=== PATIENT | female | born 1990 | race Caucasian/White ===

== ENCOUNTER → 2017-01-29 | Outpatient (CLI) | payer MEDICAID, OTHER ==
[~2017-01-29] MED LIST: ADVI200T PO; CIPR500T89 PO; FLAG500T PO; NORCOTAB PO; OXYC-208 PO; PERCOCET PO; TYLE325T5 PO
[2017-01-29 12:05] LABS: BASO % 0.7 % (0.0-1.0); EOS # 0.2 K/mm3 (0.0-0.50); EOS % 3.4 % (0.0-3.0); LARGE UNSTAINED CELL # 0.2 K/mm3 (0.0-0.4); LARGE UNSTAINED CELL % 2.6 % (0.0-4.0); LYMPH # 2.3 K/mm3 (1.5-6.5); LYMPH % 33.5 % (24.0-44.0); MEAN CORPUSCULAR HGB CONC 33.8 g/dl (32.0-36.5); MEAN CORPUSCULAR VOLUME 94.6 fl (80.0-96.0); MONO # 0.4 K/mm3 (0.0-0.8); MONO % 7.1 % (0.0-5.0); NEUTROPHILS # 3.3 K/mm3 (1.8-7.7); NEUTROPHILS % 52.7 % (36.0-66.0); PLATELET COUNT, AUTOMATED 217 k/mm3 (150-450); RED CELL DISTRIBUTION WIDTH 12.6 % (11.5-14.5); WHITE BLOOD COUNT 6.3 K/mm3 (4.0-10.0)
[2017-01-29 12:16] LABS: CONTROL LINE HCG INT CTR LINE PRESENT
[2017-01-29 12:34] LABS: ALBUMIN 3.6 GM/DL (3.2-5.2); ALBUMIN/GLOBULIN RATIO 1.06 (1.00-1.93); ALKALINE PHOSPHATASE 68 U/L (45-117); ALT/SGPT 12 U/L (12-78); ANION GAP 6 MEQ/L (8-16); AST/SGOT 17 U/L (15-37); BILIRUBIN,TOTAL 0.4 MG/DL (0.2-1.0); BLOOD UREA NITROGEN 12 MG/DL (7-18); CALCIUM LEVEL 8.7 MG/DL (8.5-10.1); CARBON DIOXIDE LEVEL 28 MEQ/L (21-32); CHLORIDE LEVEL 106 MEQ/L (98-107); CHOLESTEROL LEVEL 133 MG/DL (<200); GLOMERULAR FILTRATION RATE > 60.0 (>60); GLUCOSE, FASTING 91 MG/DL (70-105); POTASSIUM SERUM 3.9 MEQ/L (3.5-5.1); SODIUM LEVEL 140 MEQ/L (136-145); TRIGLYCERIDES LEVEL 101 MG/DL (<150)
== END ==
LOC: M LAB 11:31
PROVIDERS: ATTEND Family Medicine Addiction Medicine
DX: Z00.01 Encounter for general adult medical examination with abnormal findings (principal)

== ENCOUNTER → 2017-02-22 | Outpatient (CLI) | payer OTHER ==
[2017-02-22 13:57] LABS: FREE T4 1.17 NG/DL (0.76-1.46)
== END ==
LOC: M LAB 12:21
PROVIDERS: ATTEND Family Medicine Addiction Medicine
DX: E05.80 Other thyrotoxicosis without thyrotoxic crisis or storm (principal)

== ENCOUNTER → 2017-05-20 | Outpatient (CLI) | payer OTHER ==
[~2017-05-20] MED LIST changes: +NEUR100C PO
--- NOTE | 2017-05-21 09:13 | REP ---
Abdominal right upper quadrant ultrasound: Comparison is 07/26/2013. There has been interim cholecystectomy. There is no intrahepatic biliary duct dilatation. The common duct is mildly dilated measuring 6.6 mm in diameter, likely compensatory secondary to the cholecystectomy. The hepatic parenchyma is mildly echogenic compatible with hepato steatosis. There are no hepatic masses. The visualized portion of the pancreatic head is unremarkable. The pancreatic tail and body are obscured by bowel. There is no right renal calculus, hydronephrosis, mass or cyst. Right kidney is normal size measuring 12.5 cm craniocaudad length. There is no free fluid in the right upper quadrant. Impression: Mild hepato steatosis. Mild common duct dilatation, likely compensatory secondary to the cholecystectomy. Signed by Damon Fan MD 05/20/2017 07:53 A
== END ==
LOC: M RAD 07:01
PROVIDERS: ATTEND Internal Medicine Gastroenterology
DX: R10.13 Epigastric pain (principal)

== ENCOUNTER 2017-07-02 12:17 | Outpatient (CLI) | payer OTHER ==
[~2017-07-02 12:17] MED LIST changes: -NEUR100C PO
[2017-07-02] MEDS ORDERED: NEUR100C PO (12:37)
[2017-07-02] MEDS ORDERED: NS 1,000 ML IV ONE (12:45)
[2017-07-02] MEDS ORDERED: fentaNYL 100 MCG/2 ML INJECTION (J3010) As Ordered ONE (13:10)
[2017-07-02] MEDS ORDERED: PROPOFOL 200 MG/20 ML VIAL As Ordered ONE ×2 (13:12→13:24)
[2017-07-02] MEDS ORDERED: LIDOCAINE 2% INJ 100 MG/5 ML SDV (FOR ANES.) As Ordered ONE (13:12)
--- NOTE | 2017-07-02 13:35 | ROOR ---
Patient Name: Ana Maria Olivas Procedure Date: 07/02/2017 1:13 PM Date of : 1990 Age: 26 Room: [facility] Gender: Female Note Status: Finalized Procedure: Upper GI endoscopy Indications: Epigastric abdominal pain, Persistent vomiting Providers: Kevan Marshall MD Referring MD: Justin MANCERA MD Requesting Provider: Medicines: Monitored Anesthesia Care Complications: No immediate complications. Procedure: Pre-Anesthesia Assessment: - Prior to the procedure, a History and Physical was performed, and patient medications and allergies were reviewed. The patient is competent. The risks and benefits of the procedure and the sedation options and risks were discussed with the patient. All questions were answered and informed consent was obtained. Patient identification and proposed procedure were verified by the physician, the nurse and the pharmaceutical specialty representative in the procedure room. Mental Status Examination: alert and oriented. Airway Examination: normal oropharyngeal airway and neck mobility. Respiratory Examination: clear to auscultation. CV Examination: normal. Prophylactic Antibiotics: The patient does not require prophylactic antibiotics. Prior Anticoagulants: The patient has taken no previous anticoagulant or antiplatelet agents. ASA Grade Assessment: I - A normal, healthy patient. After reviewing the risks and benefits, the patient was deemed in satisfactory condition to undergo the procedure. The anesthesia plan was to use monitored anesthesia care (MAC). Immediately prior to administration of medications, the patient was re-assessed for adequacy to receive sedatives. The heart rate, respiratory rate, oxygen saturations, blood pressure, adequacy of pulmonary ventilation, and response to care were monitored throughout the procedure. The physical status of the patient was re-assessed after the procedure. The Endoscope was introduced through the mouth, and advanced to the second part of duodenum. The upper GI endoscopy was accomplished without difficulty. The patient tolerated the procedure well. Findings: The examined esophagus was normal. Biopsies were obtained from the proximal and distal esophagus with cold forceps for histology of suspected eosinophilic esophagitis. Verification of patient identification for the specimen was done by the physician and nurse using the patient's name, date and medical record number. Estimated blood loss was minimal. Diffuse mild inflammation characterized by congestion (edema) and erythema was found in the gastric body and in the gastric antrum. Biopsies were taken with a cold forceps for histology. Biopsies were taken with a cold forceps for Helicobacter pylori testing. The duodenal bulb and second portion of the duodenum were normal. Biopsies for histology were taken with a cold forceps for evaluation of celiac disease. Impression: - Normal esophagus. Biopsied. - Gastritis. Biopsied. - Normal duodenal bulb and second portion of the duodenum. Biopsied. Recommendation: - Patient has a contact number available for emergencies. The signs and symptoms of potential delayed complications were discussed with the patient. Return to normal activities tomorrow. Written discharge instructions were provided to the patient. - Resume previous diet. - Continue present medications. - Await pathology results. - Return to GI clinic as previously scheduled 07/11/2017 at 1:30 PM. - Return to primary care physician. Kevan Marshall MD Kevan Marshall MD 07/02/2017 1:35:13 PM This report has been signed electronically. Number of Addenda: 0 Note Initiated On: 07/02/2017 1:13 PM Estimated Blood Loss: Estimated blood loss was minimal.
[2017-07-02 13:50] VITALS: BP 117/70
== END 2017-07-02 14:05 | disposition home or self-care (01) ==
LOC: M OPP 12:17
PROVIDERS: ATTEND Internal Medicine Gastroenterology
DX: R10.13 Epigastric pain (principal); R11.10 Vomiting, unspecified; K29.70 Gastritis, unspecified, without bleeding; K21.9 Gastro-esophageal reflux disease without esophagitis; Z87.891 Personal history of nicotine dependence
CPT/HCPCS: 43239; 88305; J3010

== ENCOUNTER → 2018-01-01 | Outpatient (REF) | payer OTHER, SELFPAY | LOC: M LAB REF 18:16 | DX: Z12.4 Encounter for screening for malignant neoplasm of cervix (principal) | CPT/HCPCS: G0123 ==

== ENCOUNTER → 2018-01-06 | Outpatient (CLI) | payer SELFPAY, OTHER ==
[2018-01-06 12:20] LABS: ESTRADIOL 45.5 PG/ML
[2018-01-06 12:20] LABS: FOLLICLE STIMULATING HORMONE 6.5 mIU/mL; LUTEINIZING HORMONE 6.5 mIU/mL; PROLACTIN 17.1 NG/ML
== END ==
LOC: M LAB 11:04
DX: N97.9 Female infertility, unspecified (principal)
CPT/HCPCS: 83001

== ENCOUNTER → 2018-03-31 | Outpatient (REF) | payer OTHER | LOC: M LAB REF 13:20 | DX: R87.613 High grade squamous intraepithelial lesion on cytologic smear of cervix (HGSIL) (principal) ==

== ENCOUNTER 2018-08-25 17:30 | Emergency (ER) | payer OTHER | END 2018-08-25 19:29 | disposition home or self-care (01) | LOC: M ED 17:30 | DX: S60.022A Contusion of left index finger without damage to nail, initial encounter (principal); W19.XXXA Unspecified fall, initial encounter; Y92.099 Unspecified place in other non-institutional residence as the place of occurrence of the external cause; Y93.9 Activity, unspecified; Y99.9 Unspecified external cause status | CPT/HCPCS: 73140 ==

== ENCOUNTER 2020-08-18 18:34 | Emergency (ER) | payer MEDICAID, OTHER ==
[~2020-08-18] VITALS: Ht 170.2 cm; Wt 117.3 kg
[~2020-08-18 18:34] MED LIST changes: +NEUR100C PO; +OXYC1TAB23 PO; -PERCOCET PO
[2020-08-18 20:59] VITALS: BP 133/87
== END 2020-08-18 21:00 | disposition home or self-care (01) ==
LOC: M ED 18:34
DX: Z32.01 Encounter for pregnancy test, result positive (principal)

== ENCOUNTER → 2020-08-22 | Outpatient (CLI) | payer MEDICAID | LOC: M LAB 15:02 | PROVIDERS: ATTEND Physician Assistant Medical | DX: Z32.01 Encounter for pregnancy test, result positive (principal) ==

== ENCOUNTER 2020-11-28 14:31 | Day surgery (SDC) | payer MEDICAID, OTHER ==
[~2020-11-28] VITALS: Ht 172.7 cm; Wt 111.4 kg
[2020-11-28] MEDS ORDERED: ONDANSETRON 4MG/2ML VIAL IV ONE (15:00)
[2020-11-28] MEDS ORDERED: NS 1,000 ML IV ONE ×2 (15:00→19:15)
--- OUTSIDE RECORDS SUMMARY | 2020-11-28 15:28 | CCD ---
Author Author [facility] Organization [facility] Address Unknown Phone Unavailable Support Name Relationship Address Phone NO, CONTACT Next Of Kin Unknown Unavailable JEANNE'S Next Of Kin [address] [id number] Dago W[place] [address] CE[place] [address] ARBRIANNA JENNIFER Next Of Kin Unknown LARS Next Of Kin [address] [place] [id number] [employer] Next Of Kin [address] [place] [address] [place] [address] [phone] UE Next Of Kin Unknown Unavailable DEWEY COOK Next Of Kin [phone] [address] Dewey Wilks ECON Unknown [phone] Re-disclosure Warning The records that you are about to access may contain information from federally-assisted alcohol or drug abuse programs. If such information is present, then the following federally mandated warning applies: This information has been disclosed to you from records protected by federal confidentiality rules (42 CFR part 2). The federal rules prohibit you from making any further disclosure of this information unless further disclosure is expressly permitted by the written consent of the person to whom it pertains or as otherwise permitted by 42 CFR part 2. A general authorization for the release of medical or other information is NOT sufficient for this purpose. The Federal rules restrict any use of the information to criminally investigate or prosecute any alcohol or drug abuse patient.The records that you are about to access may contain highly sensitive health information, the redisclosure of which is protected by Article 27-F of the [facility] Public Health law. If you continue you may have access to information: Regarding HIV / AIDS; Provided by facilities licensed or operated by the [facility] Office of Mental Health; or Provided by the [facility] Office for People With Developmental Disabilities. If such information is present, then the following [facility] mandated warning applies: This information has been disclosed to you from confidential records which are protected by state law. State law prohibits you from making any further disclosure of this information without the specific written consent of the person to whom it pertains, or as otherwise permitted by law. Any unauthorized further disclosure in violation of state law may result in a fine or mcc sentence or both. A general authorization for the release of medical or other information is NOT sufficient authorization for further disc losure. Family History Family Member Name Family Member Gender Family Member Status Date o f Status Description Data Source(s) Unknown Unknown Problem MEDENT ([facility]) Unknown Male Problem MED[facility] ([facility]) Insurance Providers Payer name Policy type / Coverage type Policy ID Covered constitution party ID Covered constitution party's relationship to meza Policy Meza Plan Information EMEDNY [id number] SP [id number] [facility] [id number] SP [id number] [facility] COMMUNITY PLAN [facility] [id number] SP [id number] [facility] I [id number] Self [id number] Managed Care - Community Plan [facility] P [id number] S [id number] Medicaid S [id number] S [id number] [facility] COMM[facility] [id number] SP [id number] [facility] Comm Plan Medicaid F [id number] SELF [id number] [facility] Comm Plan Medicaid F [id number] SELF [id number] [facility] Essential Comm Plan Medicaid F [id number] SELF [id number] [facility] Health Maintenance Organization (HMO) [id number] Self [id number] [place] Medig[place] Part B [id number] Self [id number] [facility] Community Plan Medigap Part B [id number] Self [id number] [facility] Community Plan Commercial [id number] Self [id number] [place] Med[place] Part [place] [id number] Self [id number] [facility] O [id number] S [id number] [facility](MCAID) O [id number] S [id number] SELF PAY ONLY [id number] SP [id number] SELF PAY ONLY UNAVAILABLE SP UNAV AILABLE SELF PAY ONLY [id number] SP [id number] SELF PAY ONLY [id number] SP [id number] [facility] Health Maintenance Organization (HMO) [id number] Self [id number] [place] [id number] Self [id number] [facility] Community Plan Commercial [id number] Self [id number] [facility] Health Maintenance Organization (HMO) [id number] Self [id number] [place] [id number] Self [id number] [place] [id number] Self [id number] Managed Care - Community Plan [facility] P [id number] S [id number] [place] Med[place] Part [place] [id number] Self [id number] [facility] Health Maintenance Organization (O) [id number] Self [id number] [place] [id number] Self [id number] [place] Medig[place] [id number] Self [id number] [facility](MCAID) O [id number] S [id number] UNHC COMMUNITY PLAN MCDHMO [id number] SP [id number] UNHC COMMUNITY PLAN MCDHMO [id number] SP [id number] MEDICAID [id number] SP [id number] UNHC COMMUNITY PLAN MCDHMO [id number] SP [id number] UNHC COMMUNITY PLAN MCDHMO [id number] SP [id number] UNHC AMERICHOICE XIX -HMO [id number] 18 [id number] MEDICAID [id number] SP [id number] MEDICAID P [id number] S [id number] SELF PAY UNAVAILABLE SP UNAVAILA BLE P UNAVAILABLE UNAVAILA BLE [id number]
[2020-11-28 15:32] LABS: BASO % 0.2 % (0.0-1.0); HEMATOCRIT 41.3 % (36.0-47.0); HEMOGLOBIN 13.8 g/dl (12.0-15.5); LYMPH # 0.7 10^3/uL (1.5-5.0); LYMPH % 5.6 % (24.0-44.0); MEAN CORPUSCULAR HEMOGLOBIN 32.3 pg (27.0-33.0); MEAN CORPUSCULAR HGB CONC 33.4 g/dl (32.0-36.5); MEAN CORPUSCULAR VOLUME 96.7 fl (80.0-96.0); MONO # 0.3 10^3/uL (0.0-0.8); MONO % 2.6 % (0.0-8.0); NEUTROPHILS # 11.1 10^3/uL (1.5-8.5); NEUTROPHILS % 91.2 % (36.0-66.0); PLATELET COUNT, AUTOMATED 265 10^3/uL (150-450); RED BLOOD COUNT 4.27 10^6/uL (4.00-5.40); WHITE BLOOD COUNT 12.2 10^3/uL (4.0-10.0)
[2020-11-28] MEDS ORDERED: MORPHINE 2 MG/ML 1ML VIAL (J2270) IV ONE ×2 (15:45→20:15)
[2020-11-28] MEDS ORDERED: MORPHINE 4 MG/ML 1ML VIAL/SYRINGE (J2270) IV ONE (17:30)
--- NOTE | 2020-11-28 18:04 | REPVR ---
PROCEDURE INFORMATION: Exam: US First Trimester, Transabdominal and US , Transvaginal Exam date and time: 11/28/2020 4:41 PM Age: 30 years old Clinical indication: Pain; Other: RT adnexa; Gestational age or lmp: 5wks 2d; ; Additional info: Bleeding TECHNIQUE: Imaging protocol: Real-time transabdominal obstetrical ultrasound of the maternal pelvis and a first trimester , less than 14 weeks 0 days, with image documentation. Transvaginal imaging was used for better evaluation of the fetus, adnexa, and/or cervix. Total images: 64 COMPARISON: No relevant prior studies available. FINDINGS: Gestation: No intrauterine or extrauterine gestational sac is identified. No uterine mass is identified. MATERNAL: Uterus: The uterus is anteverted and 8.2 x 3.0 x 3.6 cm on the transvaginal study, and 7.8 x 3.7 x 4.1 cm on the transabdominal study. The endometrium is 1.1 cm in thickness. Cervix: Unremarkable. Closed. Right adnexa: The right ovary is 2.6 x 2.5 x 0.9 cm, not including an anechoic simple cyst adjacent to the right ovary, which is 2.5 x 2.1 x 1.5 cm. In the right adnexa, there is a complex echogenic area is 3.6 x 3.7 x 3.0 cm. It appears separate from the right ovary. On color Doppler, it is not vascular (image 54). It is hyperechoic centrally. It is nonspecific. Left adnexa: Small hemorrhagic left ovarian cyst. The left ovary is 3.2 x 2.7 x 1.7 cm. Within the left ovary, an involuting corpus luteum or hemorrhagic cyst is 1.6 x 1.6 x 0.9 cm. Intraperitoneal space: Mild free fluid. Urinary bladder: Urinary bladder is normal without wall thickening, mass or stone. IMPRESSION: 1. No intrauterine or extrauterine gestational sac is identified. Differential diagnosis includes early pce-euq-iwalcru intrauterine , recent miscarriage or occult ectopic . 2. In the right adnexa, a complex echogenic area is 3.6 x 3.7 x 3.0 cm. It is separate from the right ovary. On color Doppler, it is not vascular (image 54). It is nonspecific. An ectopic cannot be excluded. Close clinical follow-up is recommended. 3. Mild free fluid. CONFERENCE CALL: The findings were verbally communicated via telephone conference with MILITARY PAY CLERK Kee Naidu at 6:01 PM EST on 11/28/2020. The findings were acknowledged and understood. Electronically signed by: Narendra Duran On 11/28/2020 18:03:42 PM
[2020-11-28] MEDS ORDERED: SUCCINYLCHOLINE 100 MG/5 ML SYRINGE (J0330) As Ordered ONE (19:33)
[2020-11-28] MEDS ORDERED: propofoL 200 MG/20 ML VIAL As Ordered ONE (19:33)
[2020-11-28] MEDS ORDERED: LIDOCAINE 2% 100MG/5ML SDV (FOR ANES.) As Ordered ONE (19:33)
[2020-11-28] MEDS ORDERED: ROCURONIUM BROMIDE 50 MG/5 ML VIAL As Ordered ONE ×2 (19:33→22:46)
[2020-11-28] MEDS ORDERED: fentaNYL 100 MCG/2 ML INJECTION (J3010) As Ordered ONE ×4 (19:34→23:29)
[2020-11-28] MEDS ORDERED: MIDAZOLAM INJ 2MG/2ML VIAL (J2250 PER 1MG) As Ordered ONE (19:34)
[2020-11-28] MEDS ORDERED: OXYC1TAB23 PO (19:47)
[2020-11-28] MEDS ORDERED: IBUP1TAB7 PO (19:47)
[2020-11-28] MEDS: LR 1,000 ML IV SCH (20:11)
[2020-11-28 20:39] LABS: RSV AMPLIFICATION NEGATIVE (NEGATIVE)
[2020-11-28] MEDS ORDERED: BUPIVACAINE HCL 0.25% 30ML VIAL As Ordered ONE (20:45)
--- OUTSIDE RECORDS SUMMARY | 2020-11-28 21:31 | CCD ---
Author Author [facility] Organization [facility] Address Unknown Phone Unavailable Support Name Relationship Address Phone NO, CONTACT Next Of Kin Unknown Unavailable JEANNE'S Next Of Kin [address] [id number] Dago WILKS [place] [address] CELL JENNIFER [place] [address] ARBRIANNA JENNIFER Next Of Kin Unknown LARS Next Of Kin [address] [facility] [place] [id number] [employer] Next Of Kin [address] [place] [address] [place] [address] [phone] UE Next Of Kin Unknown Unavailable DEWEY COOK Next Of Kin [phone] [address] Dewey Wilks ECON Unknown [phone] Re-disclosure Warning The records that you are [...] is protected by Article 27-F of the [facility] Public Health law. If you continue you may have access to information: Regarding HIV / AIDS; Provided by facilities licensed or operated by the [facility] Office of Mental Health; or Provided by the [facility] Office for People With Developmental Disabilities. If such information is present, then the following [facility] mandated warning applies: This information has been [...] law may result in a fine or custodial sentence or both. A general authorization for the release of medical or other information is NOT sufficient authorization for further disc losure. Family History Family Member Name Family Member Gender Family Member Status Date o f Status Description Data Source(s) Unknown Unknown Problem MED[facility] ([facility]) Unknown Male Problem [facility] ([facility]) Insurance Providers Payer name Policy type / Coverage type Policy ID Covered green party ID Covered green party's relationship to meza Policy Meza Plan Information GONZALO [id number] SP [id number] EMEDNY [id number] SP [id number] [facility] [id number] SP [id number] 500 [facility] COMMUNITY PLAN [facility] [id number] SP [id number] [facility] I [id number] Self [id number] Managed Care - Community Plan [facility] P [id number] S [id number] Medicaid S [id number] S [id number] [facility] COMMUNITY PLAN [facility] [id number] SP [id number] [facility] Comm Plan Medicaid F [id number] SELF [id number] [facility] Comm Plan Medicaid F [id number] SELF [id number] [facility] Essential Comm Plan Medicaid F [id number] SELF [id number] [facility] Health Maintenance Organization (HMO) [id number] Self [id number] [place] Medig[place] Part B [id number] Self [id number] [facility] Community Plan Medigap Part B [id number] Self [id number] [facility] Community Plan Commercial [id number] Self [id number] [place] Med[place] Part B [id number] Self [id number] [facility](MCAID) O [id number] S [id number] [facility]) O [id number] S [id number] SELF PAY ONLY [id number] SP [id number] SELF PAY ONLY UNAVAILABLE SP UNAV AILABLE SELF PAY ONLY [id number] SP [id number] SELF PAY ONLY [id number] SP [id number] [facility] Health Maintenance Organization (HMO) [id number] Self [id number] [place] Med[place] Part [place] [id number] Self [id number] [facility] Community Plan Commercial [id number] Self [id number] [facility] Health Maintenance Organization (HMO) [id number] Self [id number] [place] [id number] Self [id number] [place] [id number] Self [id number] Managed Care - Community Plan [facility] P [id number] S [id number] [place] Med[place] Part B [id number] Self [id number] [facility] Health Maintenance Organization (O) [id number] Self [id number] [place] [id number] Self [id number] [place] [id number] Self [id number] [facility](MCAID) O [id number] S [id number] UNHC COMMUNITY PLAN MCDO [id number] SP [id number] UNHC COMMUNITY PLAN MCDO [id number] SP [id number] MEDICAID [id number] SP [id number] UNHC COMMUNITY PLAN MCDHMO [id number] SP [id number] UNHC COMMUNITY PLAN MCDHMO [id number] SP [id number] UNHC AMERICHOICE XIX -HMO [id number] 18 [id number] MEDICAID [id number] SP [id number] MEDICAID P [id number] S [id number] SELF PAY UNAVAILABLE SP UNAVAILA BLE P UNAVAILABLE UNAVAILA BLE [id number]
[2020-11-28] MEDS ORDERED: dexameTHASONE 4 MG/ML 1ML VIAL (J1100 PER 1MG) As Ordered ONE (21:45)
[2020-11-28] MEDS ORDERED: SUGAMMADEX SODIUM 500 MG/5 ML VIAL (BRIDION) As Ordered ONE (21:45)
[2020-11-28] MEDS ORDERED: ONDANSETRON 4MG/2ML VIAL As Ordered ONE (21:45)
[2020-11-28] MEDS ORDERED: ACETAMINOPHEN 1000MG 100ML IV BTL (OFIRMEV) (J0131 PER 10MG) As Ordered ONE (21:45)
[2020-11-28] MEDS ORDERED: METOCLOPRAMIDE INJ 10MG/2ML VIAL (J2765 PER 1) IV PRN (23:15)
[2020-11-28] MEDS ORDERED: ONDANSETRON 4MG/2ML VIAL IV PRN ×2 (23:15→23:30)
[2020-11-28] MEDS ORDERED: LR 1,000 ML IV SCH (23:15)
[2020-11-28] MEDS: PERCOCET 5MG/325MG TAB PO PRN ×2 (23:29→23:57)
[2020-11-28] MEDS ORDERED: PERCOCET 5MG/325MG TAB As Ordered ONE (23:29)
[2020-11-28] MEDS: fentaNYL 100 MCG/2 ML INJECTION (J3010) IV PRN ×4 (23:29→23:51)
[2020-11-28] MEDS ORDERED: PERCOCET 5MG/325MG TAB PO PRN (23:30)
[2020-11-28] MEDS ORDERED: IBUPROFEN 800 MG TAB PO PRN (23:30)
[2020-11-29] VITALS (7 sets, daily range): BP systolic 130–159; BP diastolic 78–89
[2020-11-29] MEDS ORDERED: diphenhydrAMINE 50MG/ML VIAL (J1200) IV ONE
[2020-11-29] MEDS: LR 1,000 ML IV SCH (03:48)
[2020-11-29] MEDS: PERCOCET 5MG/325MG TAB PO PRN ×2 (04:06→08:31)
--- NOTE | 2020-11-29 09:26 | RO ---
OPERATIVE NOTE DATE OF OPERATION: 11/28/2020 PREOPERATIVE DIAGNOSIS: Suspicion for ruptured right ectopic . POSTOPERATIVE DIAGNOSIS: Confirmed ruptured right ectopic , right ovarian simple cyst. PROCEDURE: laparoscopic right salpingectomy, right ovarian cystectomy SURGEON: Brianne Miller MD HAND THERAPIST: Amanda Ruiz DO CLINICAL SERVICE: Gynecology ANESTHESIA: GETA INDICATION FOR OPERATION: Ana Maria is a 30-year-old G3 now P0-0-3-0 who presented to the ER with intense abdominal pain and vaginal bleeding in the context of having a positive test. In the ER she was noted to have a quant of [id number] but on ultrasound unfortunately there was no intrauterine noted but there was a complex right adnexal mass with free fluid which caused suspicion for a rupturing ectopic . MATERIAL FORWARDED TO THE LAB: 1. Right ovarian cyst. 2. Right fallopian tube with ectopic . DESCRIPTION OF FINDINGS: Laparoscopic findings included a normal-appearing liver edge. There was blood filling the pelvis noted on entry into the abdomen. When the blood was suctioned, the uterus was normal in appearance. The left fallopian tube and left ovary were normal in appearance. The right ovary had a simple-appearing cyst and the right fallopian tube had a large mass present within it with evidence of rupture and adherent clot. INFECTION CLASSIFICATION: 2. ESTIMATED BLOOD LOSS: 100 mL of blood noted on entry into the abdomen; 5 mL of surgical blood loss. IV FLUIDS: 1400 mL lactated Ringer's. URINE OUTPUT: 600 mL of clear yellow urine. OPERATION PERFORMED: Laparoscopic right salpingectomy and right ovarian cystectomy. DESCRIPTION OF PROCEDURE: After obtaining informed consent, the patient was taken to the operating room. General endotracheal anesthesia was established. She was placed in a low lithotomy position. She was prepped and draped in usual sterile fashion. She was placed in Trendelenburg position. Jean catheter was placed and a sponge stick was placed in the vagina. The patient was taken out of Trendelenburg position. A 5-mm incision was made in the infraumbilical fold beneath the subcutaneous tissue after anesthetizing with 0.25% Marcaine. Rosario clamp was used to spread the subcutaneous tissue. Lower abdominal wall was grabbed and lifted up with the aid of towel clamps. Optiview trocar was placed at a 90-degree angle and the laparoscope was advanced through the port. Intraabdominal placement was confirmed with no injury noted below the point of entry. Continuous flow carbon dioxide began to establish a pneumoperitoneum at 15 mmHg pressure. At that point, we did an abdominal survey. The liver itself was normal in appearance and there was no blood up by the liver but there was pooling of blood in the pelvis. We placed two more trocars in the right and left lower quadrants of the abdomen. On the right side, a 5-mm incision was made through which a 5-mm trocar was placed under direct visualization after anesthetizing with 0.25% Marcaine and on the left an 11-mm incision was made through which an 11-mm trocar was placed under direct visualization after anesthetizing with 0.25% Marcaine. At that point, we were able to suction and irrigate the pelvis to visualize the abnormality which was the large right ectopic present within the right fallopian tube. There was also a right ovarian cyst. We used the LigaSure to excise the entirety of the right fallopian tube in two sections; the first containing the ectopic and the second was the remaining portion of the fallopian tube more proximal to the uterus. These were set aside in the anterior cul-de-sac while we addressed the right ovarian cyst that was present. We used the LigaSure to excise the right ovarian cyst. We observed the areas and noted complete hemostasis along the pedicle line, the right adnexa as well as the right ovary itself. At that point, we introduced an Endo Catch bag through the 11-mm port into the abdomen, opened it up and placed the portions of the fallopian tube and the ectopic , and the large clot within the Endo Catch bag and pulled that up to the level of the fascia. The right ovarian portion of the cyst that was removed was removed straight up through the 5-mm port and passed off as specimen. We were able to remove the Endo Catch bag up through the abdomen only after using a grasper to remove some sections of the specimen prior to the Endo Catch being able to come up through the fascial layer, and that was all handed off as specimen. At that point, I used a Terrance-Armando to close the fascia of the 11-mm port and there was a good seal when the suture was tied. We did another survey, again noted complete hemostasis within the pelvis and we irrigated, removed all the remaining clots that had been present previously. At that point, we removed all instruments from the abdomen and removed the ports under direct visualization observing them to be hemostatic. The pneumoperitoneum was released prior to removal of the umbilical port. The incisions were reapproximated with 4-0 Monocryl suture and Dermabond overlying. The sponge stick was removed from the vagina. Jean catheter was removed. All counts were correct times 2. The patient tolerated the procedure well and was awakened from general anesthesia and taken to the recovery room in stable condition. CATHERINE
== END 2020-11-29 10:57 | disposition home or self-care (01) ==
LOC: EDBD 14:31 → M ED 14:31 → M SDC 14:32 → M PED 11-29 00:16 → M SDC 11-29 10:57
PROVIDERS: ATTEND Obstetrics & Gynecology
DX: O00.90 Unspecified ectopic pregnancy without intrauterine pregnancy (principal); N83.201 Unspecified ovarian cyst, right side; F17.218 Nicotine dependence, cigarettes, with other nicotine-induced disorders
CPT/HCPCS: 36415; 58662; 59150; 76801; 76817; 84702; 85025; 86850; 86900; 86901; 87631; 87641; 88305; 96361; 96374; 96375; 96376; 99284; J0131; J0330; J1100; J2250; J2270; J2405; J3010

== ENCOUNTER 2020-12-04 19:23 | Emergency (ER) | payer OTHER ==
[~2020-12-04] VITALS: Ht 172.7 cm; Wt 112.2 kg
[~2020-12-04 19:23] MED LIST changes: +IBUP1TAB7 PO
--- OUTSIDE RECORDS SUMMARY | 2020-12-04 19:51 | CCD ---
Author Author [facility] Organization [facility] Address Unknown Phone Unavailable Support Name Relationship Address Phone NO, CONTACT Next Of Kin Unknown Unavailable JEANNE'S Next Of Kin [address] [id number] Dago W[place] [address] CELL [place] [address] ARBRIANNA JENNIFER Next Of Kin Unknown LARS Next Of Kin [address] [place] [id number] [employer] Next Of Kin [address] [place] [address] [place] [address] [phone] UE Next Of Kin Unknown Unavailable DEWEY COOK Next Of Kin [address] [address] Dewey Wilks ECON Unknown [phone] Re-disclosure Warning The records that you are [...] is protected by Article 27-F of the [facility] Public Health law. If you continue you may have access to information: Regarding HIV / AIDS; Provided by facilities licensed or operated by the [facility] Office of Mental Health; or Provided by the [facility] Office for People With Developmental Disabilities. If such information is present, then the following [facility] mandated warning applies: This information has been [...] law may result in a fine or long term sentence or both. A general authorization for the release of medical or other information is NOT sufficient authorization for further disc losure. Family History Family Member Name Family Member Gender Family Member Status Date o f Status Description Data Source(s) Unknown Unknown Problem MEDENT ([facility]) Unknown Male Problem MEDENT ([facility] ) Encounters Encounter Providers Location Date Indications Data Source(s ) Unknown [address] [facility] [address] 11/30/2020 12:00:00 AM EST eCW1 ([facility]) Immunizations Vaccine Date Status Description Data Source(s) IIV3. This is one of two codes replacing CVX 15, which is being retired. 07/19/2020 08:16:00 AM EDT completed eCW1 ([facility]) Insurance Providers Payer name Policy type / Coverage type Policy ID Covered republican ID Covered republican's relationship to meza Policy Meza Plan Information GONZALO [id number] SP [id number] GONZALO [id number] SP [id number] EMEDNY [id number] SP [id number] UN COMMUNITY PLAN [facility] [id number] SP [id number] [facility] I [id number] Self [id number] Managed Care - Community Plan [facility] P [id number] S [id number] Medicaid S [id number] S [id number] [employer]HC COMMUNITY PLAN [facility] [id number] SP [id number] [facility] Comm Plan Medicaid F [id number] SELF [id number] [facility] Comm Plan Medicaid F [id number] SELF [id number] [facility] Essential Comm Plan Medicaid F [id number] SELF [id number] [facility] Health Maintenance Organization (HMO) [id number] Self [id number] [place] Med[place] [id number] Self [id number] [facility] Community Plan Medigap Part B [id number] Self [id number] [facility] Community Plan Commercial [id number] Self [id number] [place] [id number] Self [id number] [facility](MCAID) O [id number] S [id number] [facility]) O [id number] S [id number] SELF PAY ONLY [id number] SP [id number] SELF PAY ONLY UNAVAILABLE SP UNAV AILABLE SELF PAY ONLY [id number] SP [id number] SELF PAY ONLY [id number] SP [id number] [facility] Health Maintenance Organization (HMO) [id number] Self [id number] [place] [id number] Self [id number] [facility] Community Plan Commercial [id number] Self [id number] [facility] Health Maintenance Organization (HMO) [id number] Self [id number] [place] [id number] Self [id number] [place] [id number] Self [id number] Managed Care - Community Plan [employer] P [id number] S [id number] [place] [id number] Self [id number] [facility] Health Maintenance Organization (HMO) [id number] Self [id number] [place] [id number] Self [id number] [place] Med[place] [id number] Self [id number] [facility]([place]CAID) O [id number] S [id number] UNHC COMMUNITY PLAN MCD[facility]MO [id number] SP [id number] UNHC COMMUNITY PLAN [facility] [id number] SP [id number] MEDICAID [id number] SP [id number] UNHC COMMUNITY PLAN [facility] [id number] SP [id number] UNHC COMMUNITY PLAN [facility] [id number] SP [id number] UNHC AMERICHOICE XIX -HMO [id number] 18 [id number] MEDICAID [id number] SP [id number] MEDICAID P [id number] S [id number] SELF PAY UNAVAILABLE SP UNAVAILA BLE P UNAVAILABLE UNAVAILA BLE [id number] Problems, Conditions, and Diagnoses Code Display Name Description Problem Type Effective Dates Data Source(s) R13.10 [id number] Esophageal dysphagia Problem 03/30/2020 12:0 0:00 AM EDT eCW1 ([facility]) Results ID Date Data Source [id number] 11/28/2020 07:12:00 PM EST [place] Name Value Range Interpretation Code Description Data Calista rce(s) Supporting Document(s) SARS coronavirus 2 RNA [Presence] in Res piratory specimen by ANA with probe detection NEGATIVE [facility] This lab was ordered by [facility] a nd reported by [facility]. Procedure
[2020-12-04] MEDS ORDERED: KETOROLAC 30 MG/ML 1ML VIAL IV ONE (20:00)
[2020-12-04] MEDS ORDERED: ONDANSETRON 4MG/2ML VIAL IV ONE (20:00)
[2020-12-04 20:43] LABS: BASO % 0.5 % (0.0-1.0); EOS # 0.4 10^3/uL (0.0-0.5); EOS % 4.6 % (0.0-3.0); HEMATOCRIT 36.7 % (36.0-47.0); HEMOGLOBIN 11.9 g/dl (12.0-15.5); LYMPH # 2.4 10^3/uL (1.5-5.0); LYMPH % 30.8 % (24.0-44.0); MEAN CORPUSCULAR HGB CONC 32.4 g/dl (32.0-36.5); MEAN CORPUSCULAR VOLUME 98.7 fl (80.0-96.0); MONO # 0.7 10^3/uL (0.0-0.8); MONO % 9.5 % (2.0-8.0); NEUTROPHILS # 4.2 10^3/uL (1.5-8.5); NEUTROPHILS % 54.5 % (36.0-66.0); PLATELET COUNT, AUTOMATED 238 10^3/uL (150-450); RED BLOOD COUNT 3.72 10^6/uL (4.00-5.40); WHITE BLOOD COUNT 7.7 10^3/uL (4.0-10.0)
[2020-12-04] MEDS ORDERED: ISOVUE-370 76% 100ML VIAL As Ordered ONE (20:52)
[2020-12-04 20:53] LABS: INR 1.02; PROTHROMBIN TIME 13.6 SECONDS (12.5-14.3)
[2020-12-04 20:54] LABS: PARTIAL THROMBOPLASTIN TIME 30.8 SECONDS (24.2-38.5)
[2020-12-04 21:05] LABS: ALBUMIN 3.6 GM/DL (3.2-5.2); ALT/SGPT 16 U/L (12-78); BILIRUBIN,DIRECT < 0.1 MG/DL (0.0-0.2); BILIRUBIN,TOTAL 0.2 MG/DL (0.2-1.0); TOTAL PROTEIN 6.6 GM/DL (6.4-8.2)
[2020-12-04] MEDS ORDERED: MORPHINE 4 MG/ML 1ML VIAL/SYRINGE (J2270) IV ONE (21:15)
[2020-12-04] MEDS ORDERED: METOCLOPRAMIDE INJ 10MG/2ML VIAL (J2765 PER 1) IV ONE (21:15)
--- NOTE | 2020-12-04 21:35 | REPVR ---
PROCEDURE INFORMATION: Exam: CT Abdomen And Pelvis With Contrast Exam date and time: 12/04/2020 8:53 PM Age: 30 years old Clinical indication: Abdominal pain; Additional info: Post surgery/trauma to abdomen llq TECHNIQUE: Imaging protocol: Computed tomography of the abdomen and pelvis with contrast. Radiation optimization: All CT scans at this facility use at least one of these dose optimization techniques: automated exposure control; mA and/or kV adjustment per patient size (includes targeted exams where dose is matched to clinical indication); or iterative reconstruction. Contrast material: ISO 370; Contrast volume: 100 ml; Contrast route: INTRAVENOUS (IV); COMPARISON: 1ST TRIMESTER US 11/28/2020 4:44 PM FINDINGS: Lungs: Minimal atelectasis or scar in the anterior right lower lobe. Liver: Normal. No mass. Gallbladder and bile ducts: Status post cholecystectomy. Pancreas: Normal. No ductal dilation. Spleen: Normal. No splenomegaly. Adrenal glands: Normal. No mass. Kidneys and ureters: Normal. No hydronephrosis. Stomach and bowel: Much of the colon is collapsed or contracted with question of slight wall thickening. Appendix: A normal appendix is seen at the hepatic tip. Intraperitoneal space: Unremarkable. No free air. No significant fluid collection. Vasculature: Unremarkable. No abdominal aortic aneurysm. Lymph nodes: Unremarkable. No enlarged lymph nodes. Urinary bladder: Unremarkable as visualized. Reproductive: Unremarkable as visualized. Bones/joints: Unremarkable. No acute fracture. Soft tissues: Unremarkable. IMPRESSION: 1. Question of minimal nonspecific pancolitis. 2. Status post cholecystectomy. 3. Otherwise negative CT abdomen/pelvis. No acute posttraumatic change is seen. Electronically signed by: Martin Mcgill On 12/04/2020 21:35:45 PM
--- OUTSIDE RECORDS SUMMARY | 2020-12-04 22:03 | CCD ---
Author Author [facility] Organization [facility] Address Unknown Phone Unavailable Support Name Relationship Address Phone NO, CONTACT Next Of Kin Unknown Unavailable JEANNE'S Next Of Kin [address] [id number] Dago W[place]KS [place] [address] CE[place] [address] ARBRIANNA JENNIFER Next Of Kin Unknown LARS Next Of Kin [address] [place] [id number] [employer] Next Of Kin [address] [place] [address] [place] [address] [phone] UE Next Of Kin Unknown Unavailable DEWEY COOK Next Of Kin [address] [address] Dewey Wilks ECON Unknown [phone] Re-disclosure Warning The records that you are [...] is protected by Article 27-F of the [facility] Public Health law. If you continue you may have access to information: Regarding HIV / AIDS; Provided by facilities licensed or operated by the [facility] Office of Mental Health; or Provided by the [facility] Office for People With Developmental Disabilities. If such information is present, then the following [facility] mandated warning applies: This information has [...] Description Data Source(s) Unknown Unknown Problem MEDENT ([facility]) Unknown Male Problem MEDENT ([facility] ) Encounters Encounter Providers Location Date Indications Data Source(s ) Unknown [address] [facility] [address] 11/30/2020 12:00:00 AM EST eCW1 ([facility]) Immunizations Vaccine Date Status Description Data Source(s) IIV3. This is one of two codes replacing CVX 15, which is being retired. 07/19/2020 08:16:00 AM EDT completed eCW1 ([facility]) Insurance Providers Payer name Policy type / Coverage type Policy ID Covered alliance party ID Covered alliance party's relationship to meza Policy Meza Plan Information GONZALO [id number] SP [id number] 500 GONZALO [id number] SP [id number] EMEDNY [id number] SP [id number] UN COMMUNITY PLAN [facility] [id number] SP [id number] [facility] I [id number] Self [id number] Managed Care - Community Plan [facility] P [id number] S [id number] Medicaid S [id number] S [id number] UNHC COMMUNITY PLAN [facility] [id number] SP [id number] [facility] Comm Plan Medicaid F [id number] SELF [id number] [facility] Comm Plan Medicaid F [id number] SELF [id number] [facility] Essential Comm Plan Medicaid F [id number] SELF [id number] [facility] Health Maintenance Organization (HMO) [id number] Self [id number] [place] Part [place] [id number] Self [id number] [facility] Community Plan Medigap Part B [id number] Self [id number] [facility] Community Plan Commercial [id number] Self [id number] [place] Part B [id number] Self [id number] [facility]) O [id number] S [id number] [facility] O [id number] S [id number] SELF PAY ONLY [id number] SP [id number] SELF PAY ONLY UNAVAILABLE SP UNAV AILABLE SELF PAY ONLY [id number] SP [id number] SELF PAY ONLY [id number] SP [id number] [facility] Health Maintenance Organization (HMO) [id number] Self [id number] [place] Part [place] [id number] Self [id number] [facility] Community Plan Commercial [id number] Self [id number] [facility] Health Maintenance Organization (HMO) [id number] Self [id number] [place] [id number] Self [id number] [place] [id number] Self [id number] Managed Care - Community Plan [employer] P [id number] S [id number] [place] [id number] Self [id number] [facility] Health Maintenance Organization (HMO) [id number] Self [id number] [place] [id number] Self [id number] [place] [id number] Self [id number] [facility]) O [id number] S [id number] UNHC COMMUNITY PLAN [facility] [id number] SP [id number] UNHC COMMUNITY PLAN [facility] [id number] SP [id number] MEDICAID [id number] SP [id number] UNHC COMMUNITY PLAN [facility] [id number] SP [id number] UNHC COMMUNITY PLAN [facility] [id number] SP [id number] UNHC AMERICHOICE XIX -HMO [id number] 18 [id number] MEDICAID [id number] SP [id number] MEDICAID P [id number] S [id number] SELF PAY UNAVAILABLE SP UNAVAILA BLE P UNAVAILABLE UNAVAILA BLE [id number] Problems, Conditions, and Diagnoses Code Display Name Description Problem Type Effective Dates Data Source(s) R13.10 [id number] Esophageal dysphagia Problem 03/30/2020 12:0 0:00 AM EDT eCW1 ([facility]) Results ID Date Data Source [id number] 11/28/2020 07:12:00 PM EST [facility] Name Value Range Interpretation Code Description Data Calista rce(s) Supporting Document(s) SARS coronavirus 2 RNA [Presence] in Res piratory specimen by ANA with probe detection NEGATIVE [facility] This lab was ordered by [facility] a nd reported by [facility]. Procedure
[2020-12-04 22:11] VITALS: BP 129/81
[2020-12-04] MEDS ORDERED: NORCO 5/325MG TABLET (BULK FOR ED) PO ONE (22:15)
== END 2020-12-04 22:27 | disposition home or self-care (01) ==
LOC: M ED 19:23
DX: S30.1XXA Contusion of abdominal wall, initial encounter (principal); W22.8XXA Striking against or struck by other objects, initial encounter; Y92.018 Other place in single-family (private) house as the place of occurrence of the external cause
CPT/HCPCS: 74177; 80047; 80076; 81001; 85025; 85610; 85730; 96374; 96375; 99283; J1885; J2270; J2405; J2765; Q9967

== ENCOUNTER 2022-06-02 10:02 | Emergency (ER) | payer MEDICAID, OTHER, SELFPAY ==
[~2022-06-02] VITALS: Ht 172.7 cm; Wt 107.2 kg
[2022-06-02 10:02] VITALS: BP 145/95
[2022-06-02] MEDS ORDERED: ONDA4TAB6 PO (10:33)
[2022-06-02 12:16] LABS: BASO % 0.2 % (0.0-1.0); EOS % 0.1 % (0.0-3.0); HEMATOCRIT 47.6 % (36.0-47.0); HEMOGLOBIN 16.5 g/dl (12.0-15.5); LYMPH # 1.6 10^3/uL (1.5-5.0); LYMPH % 11.9 % (24.0-44.0); MEAN CORPUSCULAR HEMOGLOBIN 32.5 pg (27.0-33.0); MEAN CORPUSCULAR HGB CONC 34.7 g/dl (32.0-36.5); MEAN CORPUSCULAR VOLUME 93.9 fl (80.0-96.0); MONO # 1.2 10^3/uL (0.0-0.8); MONO % 8.9 % (2.0-8.0); NEUTROPHILS # 10.3 10^3/uL (1.5-8.5); NEUTROPHILS % 78.4 % (36.0-66.0); PLATELET COUNT, AUTOMATED 347 10^3/uL (150-450); RED BLOOD COUNT 5.07 10^6/uL (4.00-5.40); WHITE BLOOD COUNT 13.1 10^3/uL (4.0-10.0)
[2022-06-02] MEDS ORDERED: METOCLOPRAMIDE INJ 10MG/2ML VIAL (J2765 PER 1) IV ONE (12:45)
[2022-06-02] MEDS ORDERED: NS 1,000 ML IV ONE (12:45)
[2022-06-02 12:47] LABS: HCG, SERUM QUALITATIVE NEGATIVE (NEGATIVE)
[2022-06-02 12:55] LABS: ALBUMIN 4.4 GM/DL (3.2-5.2); ALT/SGPT 12 U/L (12-78); BILIRUBIN,DIRECT 0.3 MG/DL (0.0-0.2); BILIRUBIN,TOTAL 0.7 MG/DL (0.2-1.0); BLOOD UREA NITROGEN 10 MG/DL (7-18); CALCIUM LEVEL 9.7 MG/DL (8.5-10.1); CARBON DIOXIDE LEVEL 29 MEQ/L (21-32); CHLORIDE LEVEL 98 MEQ/L (98-107); CREATININE FOR GFR 0.97 MG/DL (0.55-1.30); GLOMERULAR FILTRATION RATE > 60.0 (>60); GLUCOSE, FASTING 114 MG/DL (70-100); LIPASE 315 U/L (73-393); POTASSIUM SERUM 3.3 MEQ/L (3.5-5.1); SODIUM LEVEL 135 MEQ/L (136-145); TOTAL PROTEIN 8.3 GM/DL (6.4-8.2)
[2022-06-02] MEDS ORDERED: PANTOPRAZOLE 40MG VIAL IV ONE (13:50)
[2022-06-02] MEDS ORDERED: GI COCKTAIL 50ML BTL(HYOSCYAMINE/MAALOX/LIDOCAINE VISCOUS)(1:3:1) PO ONE (13:50)
[2022-06-02] MEDS ORDERED: PROT1TAB2 PO (14:34)
[2022-06-02] MEDS ORDERED: SUCR1SS PO (14:34)
== END 2022-06-02 15:31 | disposition home or self-care (01) ==
LOC: M ED 10:02
DX: K21.9 Gastro-esophageal reflux disease without esophagitis (principal); Z87.19 Personal history of other diseases of the digestive system
CPT/HCPCS: 80048; 80076; 83690; 84703; 85025; 96361; 96374; 96375; 99283; C9113; J2765

== ENCOUNTER 2022-07-30 22:28 | Emergency (ER) | payer MEDICAID ==
[~2022-07-30] VITALS: Ht 172.7 cm; Wt 111.4 kg
[~2022-07-30 22:28] MED LIST changes: +ONDA4TAB6 PO; +PROT1TAB2 PO; +SUCR1SS PO
[2022-07-31 06:20] LABS: BASO % 0.2 % (0.0-1.0); EOS % 0.2 % (0.0-3.0); HEMATOCRIT 41.3 % (36.0-47.0); HEMOGLOBIN 14.2 g/dl (12.0-15.5); LYMPH # 1.1 10^3/uL (1.5-5.0); LYMPH % 10.3 % (24.0-44.0); MEAN CORPUSCULAR HEMOGLOBIN 32.7 pg (27.0-33.0); MEAN CORPUSCULAR HGB CONC 34.4 g/dl (32.0-36.5); MEAN CORPUSCULAR VOLUME 95.2 fl (80.0-96.0); MONO # 0.3 10^3/uL (0.0-0.8); MONO % 2.7 % (2.0-8.0); NEUTROPHILS # 9.4 10^3/uL (1.5-8.5); NEUTROPHILS % 86.1 % (36.0-66.0); PLATELET COUNT, AUTOMATED 293 10^3/uL (150-450); RED BLOOD COUNT 4.34 10^6/uL (4.00-5.40); WHITE BLOOD COUNT 10.9 10^3/uL (4.0-10.0)
[2022-07-31 06:43] LABS: ALT/SGPT 14 U/L (12-78); AMYLASE 38 U/L (25-115); BILIRUBIN,DIRECT 0.1 MG/DL (0.0-0.2); BILIRUBIN,TOTAL 0.5 MG/DL (0.2-1.0); BLOOD UREA NITROGEN 9 MG/DL (7-18); CALCIUM LEVEL 9.2 MG/DL (8.5-10.1); CARBON DIOXIDE LEVEL 22 MEQ/L (21-32); CHLORIDE LEVEL 105 MEQ/L (98-107); CREATININE FOR GFR 0.67 MG/DL (0.55-1.30); GLOMERULAR FILTRATION RATE > 60.0 (>60); GLUCOSE, FASTING 123 MG/DL (70-100); LIPASE 120 U/L (73-393); POTASSIUM SERUM 3.6 MEQ/L (3.5-5.1); SODIUM LEVEL 138 MEQ/L (136-145); TOTAL PROTEIN 7.7 GM/DL (6.4-8.2)
[2022-07-31] MEDS ORDERED: HALOPERIDOL 5MG/ML VIAL (J1630 PER 1) IV ONE (07:10)
[2022-07-31] MEDS ORDERED: ISOVUE-370 76% 100ML VIAL As Ordered ONE (07:25)
[2022-07-31 09:47] VITALS: BP 145/80
== END 2022-07-31 09:49 | disposition home or self-care (01) ==
LOC: M ED 22:28
DX: F12.188 Cannabis abuse with other cannabis-induced disorder (principal); R11.2 Nausea with vomiting, unspecified; M51.37 Other intervertebral disc degeneration, lumbosacral region; K21.9 Gastro-esophageal reflux disease without esophagitis; Z90.49 Acquired absence of other specified parts of digestive tract; K76.0 Fatty (change of) liver, not elsewhere classified; Z79.899 Other long term (current) drug therapy
CPT/HCPCS: 74177; 80048; 80076; 82150; 83690; 84702; 85025; 96374; 99284; J1630; Q9967

== ENCOUNTER 2022-12-31 08:31 | Emergency (ER) | payer MEDICAID, OTHER ==
[~2022-12-31] VITALS: Ht 172.7 cm; Wt 109.5 kg
[2022-12-31 11:46] LABS: BASO # 0.1 10^3/uL (0.0-0.2); BASO % 0.5 % (0.0-1.0); EOS # 0.1 10^3/uL (0.0-0.5); EOS % 0.5 % (0.0-3.0); HEMATOCRIT 44.2 % (36.0-47.0); HEMOGLOBIN 15.4 g/dl (12.0-15.5); LYMPH # 2.2 10^3/uL (1.5-5.0); LYMPH % 22.1 % (24.0-44.0); MEAN CORPUSCULAR HEMOGLOBIN 32.8 pg (27.0-33.0); MEAN CORPUSCULAR HGB CONC 34.8 g/dl (32.0-36.5); MEAN CORPUSCULAR VOLUME 94.2 fl (80.0-96.0); MONO # 0.8 10^3/uL (0.0-0.8); MONO % 7.9 % (2.0-8.0); NEUTROPHILS # 6.8 10^3/uL (1.5-8.5); NEUTROPHILS % 68.7 % (36.0-66.0); PLATELET COUNT, AUTOMATED 271 10^3/uL (150-450); RED BLOOD COUNT 4.69 10^6/uL (4.00-5.40); WHITE BLOOD COUNT 9.9 10^3/uL (4.0-10.0)
[2022-12-31] MEDS ORDERED: ONDANSETRON 4MG 2ML VIAL IV ONE (11:55)
[2022-12-31] MEDS ORDERED: PANTOPRAZOLE 40MG VIAL IV ONE (11:55)
[2022-12-31] MEDS ORDERED: NS 1,000 ML IV ONE (11:55)
[2022-12-31] MEDS ORDERED: KETOROLAC 30 MG/ML 1ML VIAL IV ONE (11:55)
[2022-12-31 12:09] LABS: LIPASE 30 U/L (12-53)
[2022-12-31 12:10] LABS: HCG, SERUM QUALITATIVE NEGATIVE (NEGATIVE)
[2022-12-31 12:12] LABS: ALKALINE PHOSPHATASE 62 U/L (46-116); ALT/SGPT 16 U/L (7.0-40); AST/SGOT 23 U/L (<34); BILIRUBIN,DIRECT 0.2 MG/DL (<0.4); BILIRUBIN,TOTAL 0.6 MG/DL (0.3-1.2); BLOOD UREA NITROGEN 8 MG/DL (9-23); CALCIUM LEVEL 8.4 MG/DL (8.5-10.1); CARBON DIOXIDE LEVEL 23 MMOL/L (20-31); CHLORIDE LEVEL 105 MMOL/L (98-107); CREATININE FOR GFR 0.66 MG/DL (0.55-1.30); GLOMERULAR FILTRATION RATE > 60.0 (>60); GLUCOSE, FASTING 86 MG/DL (60-100); SODIUM LEVEL 138 MMOL/L (136-145); TOTAL PROTEIN 7.2 G/DL (5.7-8.2)
[2022-12-31] MEDS ORDERED: ISOVUE-370 76% 100ML VIAL As Ordered ONE (12:39)
[2022-12-31] MEDS ORDERED: MORPHINE 2 MG/ML 1ML VIAL IV ONE (13:50)
[2022-12-31] MEDS ORDERED: GI COCKTAIL 50ML BTL(HYOSCYAMINE/MAALOX/LIDOCAINE VISCOUS)(1:3:1) PO ONE (13:50)
[2022-12-31] MEDS ORDERED: PANT40TA29 PO (15:29)
[2022-12-31] MEDS ORDERED: CARA1TAB6 PO (15:29)
[2022-12-31] MEDS ORDERED: ONDA4TAB6 PO (15:29)
[2022-12-31] MEDS ORDERED: DICY20TA20 PO (15:29)
[2022-12-31 15:44] VITALS: BP 126/74
== END 2022-12-31 15:47 | disposition home or self-care (01) ==
LOC: M ED 08:31
DX: K29.00 Acute gastritis without bleeding (principal); K21.9 Gastro-esophageal reflux disease without esophagitis
CPT/HCPCS: 74177; 80048; 80076; 81001; 83690; 84703; 85025; 96374; 96375; 99284; C9113; J1885; J2270; J2405; Q9967

== ENCOUNTER → 2023-01-17 | Outpatient (CLI) | payer OTHER ==
[~2023-01-17] MED LIST changes: +CARA1TAB6 PO; +DICY20TA20 PO; +PANT40TA29 PO
[2023-01-17 13:53] LABS: ALBUMIN 3.4 G/DL (3.2-5.2); ALKALINE PHOSPHATASE 69 U/L (46-116); ALT/SGPT < 9 U/L (7.0-40); AST/SGOT 13 U/L (<34); BILIRUBIN,DIRECT < 0.1 MG/DL (<0.4); BILIRUBIN,TOTAL 0.2 MG/DL (0.3-1.2); TOTAL PROTEIN 6.2 G/DL (5.7-8.2)
== END ==
LOC: M LAB 11:36
PROVIDERS: ATTEND Internal Medicine Gastroenterology
DX: R11.2 Nausea with vomiting, unspecified (principal)

== ENCOUNTER → 2023-03-05 | Outpatient (CLI) | payer OTHER ==
[~2023-03-05] MED LIST changes: +E-Z-GAS II EFFERVESCENT PACKET (SODIUM BICARB./CITRIC ACID/SIMETHICONE) As Ordered ONE; +E-Z-HD 98% w/w 340GM SUSP BTL As Ordered ONE; +E-Z-PAQUE 96% w/w SUSP 176GM BTL As Ordered ONE
== END ==
LOC: M RAD 08:36
PROVIDERS: ATTEND Internal Medicine Gastroenterology
DX: R11.2 Nausea with vomiting, unspecified (principal)

== ENCOUNTER 2024-04-02 18:49 | Emergency (ER) | payer OTHER, SELFPAY ==
[~2024-04-02] VITALS: Ht 170.2 cm; Wt 121.8 kg
[~2024-04-02 18:49] MED LIST changes: -E-Z-GAS II EFFERVESCENT PACKET (SODIUM BICARB./CITRIC ACID/SIMETHICONE) As Ordered ONE; -E-Z-HD 98% w/w 340GM SUSP BTL As Ordered ONE; -E-Z-PAQUE 96% w/w SUSP 176GM BTL As Ordered ONE; +ONDA-282 PO; -ONDA4TAB6 PO
[2024-04-02 20:30] LABS: BASO # 0.1 10^3/uL (0.0-0.2); BASO % 0.4 % (0.0-1.0); EOS % 0.3 % (0.0-3.0); HEMATOCRIT 43.1 % (36.0-47.0); HEMOGLOBIN 14.9 g/dl (12.0-15.5); LYMPH # 1.6 10^3/uL (1.5-5.0); MEAN CORPUSCULAR HEMOGLOBIN 33.3 pg (27.0-33.0); MEAN CORPUSCULAR HGB CONC 34.6 g/dl (32.0-36.5); MEAN CORPUSCULAR VOLUME 96.4 fl (80.0-96.0); NEUTROPHILS # 13.1 10^3/uL (1.5-8.5); NEUTROPHILS % 82.9 % (36.0-66.0); PLATELET COUNT, AUTOMATED 232 10^3/uL (150-450); RED BLOOD COUNT 4.47 10^6/uL (4.00-5.40); WHITE BLOOD COUNT 15.8 10^3/uL (4.0-10.0)
[2024-04-02 20:49] LABS: LIPASE 37 U/L (12-53)
[2024-04-02 20:52] LABS: ALBUMIN 3.7 G/DL (3.2-5.2); ALKALINE PHOSPHATASE 73 U/L (46-116); ALT/SGPT 9 U/L (7.0-40); AST/SGOT 14 U/L (<34); BILIRUBIN,DIRECT 0.1 MG/DL (<0.4); BILIRUBIN,TOTAL 0.6 MG/DL (0.3-1.2); BLOOD UREA NITROGEN 7 MG/DL (9-23); CALCIUM LEVEL 8.8 MG/DL (8.5-10.1); CARBON DIOXIDE LEVEL 24 MMOL/L (20-31); CHLORIDE LEVEL 110 MMOL/L (98-107); CREATININE FOR GFR 0.72 MG/DL (0.55-1.30); GLOMERULAR FILTRATION RATE > 60.0 (>60); GLUCOSE, FASTING 128 MG/DL (60-100); POTASSIUM SERUM 3.9 MMOL/L (3.5-5.1); SODIUM LEVEL 140 MMOL/L (136-145); TOTAL PROTEIN 6.8 G/DL (5.7-8.2)
[2024-04-02] MEDS: HALOPERIDOL LACTATE 5MG/ML VIAL IV ONE (22:23)
[2024-04-02] MEDS: NS 1,000 ML IV ONE (22:23)
[2024-04-02] MEDS: KETOROLAC 30 MG/ML 1ML VIAL IV ONE (22:23)
[2024-04-02] MEDS: LORazepam 2 MG/ML 1ML VIAL IV STA (22:23)
[2024-04-02 22:27] LABS: HCG, SERUM QUALITATIVE NEGATIVE (NEGATIVE)
[2024-04-02 22:39] LABS: AMPHETAMINES LEVEL URINE NEGATIVE (NEGATIVE)
[2024-04-02 22:40] LABS: BARBITURATES URINE NEGATIVE (NEGATIVE); BENZODIAZEPINES URINE NEGATIVE (NEGATIVE); COCAINE METABOLITE URINE NEGATIVE (NEGATIVE); METHADONE URINE NEGATIVE (NEGATIVE); OPIATES URINE NEGATIVE (NEGATIVE); PHENCYCLIDINE URINE NEGATIVE (NEGATIVE)
[2024-04-02 22:44] LABS: CANNABINOIDS URINE POSITIVE (NEGATIVE)
[2024-04-03] MEDS ORDERED: ONDA-282 PO (00:26)
[2024-04-03 00:35] VITALS: BP 133/75; TEMP 97.6; O2SAT 99
== END 2024-04-03 00:39 | disposition home or self-care (01) ==
LOC: M ED 18:49
DX: F12.188 Cannabis abuse with other cannabis-induced disorder (principal); Z79.899 Other long term (current) drug therapy
CPT/HCPCS: 80048; 80076; 80307; 81001; 83690; 84703; 85025; 87086; 96361; 96374; 96375; 99284; J1630; J1885; J2060

== ENCOUNTER 2024-06-23 10:29 | Emergency (ER) | payer SELFPAY ==
[~2024-06-23] VITALS: Ht 172.7 cm; Wt 124.0 kg
[2024-06-23] MEDS: NS 1,000 ML IV ONE (11:57)
[2024-06-23] MEDS: ONDANSETRON 4MG 2ML VIAL IV ONE (11:57)
[2024-06-23 12:21] LABS: BASO # 0.1 10^3/uL (0.0-0.2); BASO % 0.4 % (0.0-1.0); EOS # 0.1 10^3/uL (0.0-0.5); EOS % 0.6 % (0.0-3.0); HEMOGLOBIN 15.2 g/dl (12.0-15.5); LYMPH # 1.6 10^3/uL (1.5-5.0); LYMPH % 11.3 % (24.0-44.0); MEAN CORPUSCULAR HEMOGLOBIN 32.5 pg (27.0-33.0); MEAN CORPUSCULAR HGB CONC 34.5 g/dl (32.0-36.5); MEAN CORPUSCULAR VOLUME 94.2 fl (80.0-96.0); MONO # 0.9 10^3/uL (0.0-0.8); MONO % 6.4 % (2.0-8.0); NEUTROPHILS # 11.3 10^3/uL (1.5-8.5); NEUTROPHILS % 80.9 % (36.0-66.0); PLATELET COUNT, AUTOMATED 272 10^3/uL (150-450); RED BLOOD COUNT 4.67 10^6/uL (4.00-5.40)
[2024-06-23 12:44] LABS: LIPASE 37 U/L (12-53)
[2024-06-23 12:46] LABS: ALKALINE PHOSPHATASE 76 U/L (46-116); ALT/SGPT 10 U/L (7.0-40); AST/SGOT 18 U/L (<34); BILIRUBIN,DIRECT 0.2 MG/DL (<0.4); BILIRUBIN,TOTAL 0.6 MG/DL (0.3-1.2); BLOOD UREA NITROGEN 8 MG/DL (9-23); CALCIUM LEVEL 9.5 MG/DL (8.5-10.1); CARBON DIOXIDE LEVEL 23 MMOL/L (20-31); CHLORIDE LEVEL 111 MMOL/L (98-107); CREATININE FOR GFR 0.67 MG/DL (0.55-1.30); GLOMERULAR FILTRATION RATE > 60.0 (>60); GLUCOSE, FASTING 129 MG/DL (60-100); POTASSIUM SERUM 4.2 MMOL/L (3.5-5.1); SODIUM LEVEL 141 MMOL/L (136-145); TOTAL PROTEIN 7.6 G/DL (5.7-8.2)
[2024-06-23 12:57] LABS: HCG, SERUM QUALITATIVE NEGATIVE (NEGATIVE)
[2024-06-23] MEDS ORDERED: ISOVUE-370 76% 100ML VIAL As Ordered ONE (13:13)
[2024-06-23] MEDS: METOCLOPRAMIDE INJ 10MG/2ML VIAL IV ONE (13:27)
[2024-06-23] MEDS: HALOPERIDOL LACTATE 5MG/ML VIAL IV ONE (14:38)
[2024-06-23] MEDS ORDERED: PROM12.56 PO (15:59)
[2024-06-23 16:27] VITALS: BP 141/83; TEMP 97.8; O2SAT 100
== END 2024-06-23 16:49 | disposition home or self-care (01) ==
LOC: M ED 10:29
DX: R11.10 Vomiting, unspecified (principal); Z79.899 Other long term (current) drug therapy
CPT/HCPCS: 74177; 80047; 80048; 80076; 81001; 83690; 84703; 85025; 87086; 96361; 96374; 96375; 99284; J1630; J2405; J2765; Q9967